=== PATIENT | male | born 1945 | race Caucasian/White ===

== ENCOUNTER 2018-12-07 09:14 | Day surgery (SDC) | payer MEDICARE, BC ==
[~2018-12-07] VITALS: Ht 180.3 cm; Wt 97.7 kg
[2018-12-07 09:29] LABS: BASOPHILS 0.6 % (0-2); EOSINOPHILS 3.9 % (0-7); HEMATOCRIT 43.5 % (42.0-54.0); HEMOGLOBIN 14.9 g/dL (13.5-17.5); IMMATURE GRANULOCYTES 0.2 % (0-5); MCH 30.7 pg (26.0-34.0); MCHC 34.3 g/dL (31.0-37.0); MCV 89.7 fL (80.0-100.0); MONOCYTES 8.1 % (2-11); NEUTROPHILS 60.2 % (40-80); PLATELET COUNT 200 10x3/uL (130-400); RBC 4.85 10x6/uL (4.20-6.10); RDW 13.2 % (11.5-14.5); WBC 5.3 10x3/uL (4.8-10.8)
[2018-12-07 09:38] LABS: APTT 27.9 SECONDS (22.8-39.4); INR 1.05 (0.85-1.17); PROTIME 13.2 SECONDS (11.6-15.0)
[2018-12-07] MEDS ORDERED: PAXIL20 MG PO (12:40)
[2018-12-07] MEDS ORDERED: ZOCOR20 MG PO (12:40)
[2018-12-07 12:48] VITALS: BP 149/87; Ht 180.3 cm; Wt 97.7 kg
--- NOTE | 2018-12-07 15:46 | NUR ---
[address] FIELDS. PROCEDURE FINDINGS DISCUSSED WITH PATIENT & . Daniel ESTRELLA R.N.
--- NOTE | 2018-12-07 15:54 | NUR ---
1522 IV DC'D. CATHETER INTACT. NO BLEEDING AT SITE. BANDAID APPLIED. 1525 DISCHARGE INSTRUCTIONS GIVEN TO PT. AT BEDSIDE. QUESTIONS ANSWERED.
--- NOTE | 2018-12-10 12:25 | OP ---
PATIENT NAME: JOHNY COLORADO MEDICAL RECORD: [id number] :45 LOCATION:D.OPS ADMISSION DATE: SURGEON: CORWIN FIELDS MD DATE OF OPERATION: 12/07/2018 PREOPERATIVE DIAGNOSIS: History of colon polyps. POSTOPERATIVE DIAGNOSES: History of colon polyps with 7 new sessile and semi-pedunculated colon polyps, one with significant regrowth within a scar. PROCEDURES: 1. Total colonoscopy to cecum. 2. Hot biopsy forceps polypectomy times 7. SURGEON: Corwin Fields MD TOP PRECIPITATOR OPERATOR HELPER: None. BLOOD LOSS: Minimal. ANESTHESIA: IV sedation. His prep was inadequate. Due to the inadequate prep, I will plan on performing another colonoscopy in a year. ENDOSCOPIC COURSE: The patient was conveyed to endoscopy suite electively on 12/07/2018. IV sedation was induced by the anesthesia staff. The patient was placed in the Dunlap position. A digital rectal examination was performed. A colonoscope was inserted through the anus. It was advanced to the ascending colon with difficulty. I slowly withdrew the endoscope. I irrigated and aspirated extensively. Pullback was greater than 18-minute pullback. I utilized not only normal imaging, but also narrow band imaging. Seven hot biopsy forceps polypectomies were performed. The polyps ranged in size from 7 mm-1.5 cm. A retroflexed view was obtained in the rectum. I then unretroflexed the scope and removed it under direct vision. I am going to dismiss the patient home on Flagyl. I plan to see him in my office in 2-3 weeks. I will plan for his next colonoscopy to take place in 1 year. TRANSINT:[id number] Voice Confirmation ID: [id number] DOCUMENT ID: [id number] CORWIN FIELDS MD at 1225 CC: REUBEN CARTWRIGHT [id number] DICTATION DATE: 12/07/18 1444 CAFE ASSISTANT: 12/07/18 1613 [facility] 12/07/[address] [address]
--- NOTE | 2018-12-10 12:25 | HP ---
PATIENT: JOHNY COLORADO MEDICAL RECORD: [id number] ACCOUNT: [id number] LOCATION:[facility] : 45 ADMISSION DATE: 12/07/18 PCP: REUBEN CARTWRIGHT MD HISTORY AND PHYSICAL EXAMINATION CHIEF COMPLAINT: Colon polyps. HISTORY OF PRESENT ILLNESS: The patient has had a history of colon polyps. Also, a family history of colon cancer. His mother had colon cancer. He has had no abdominal pain. No melena. No hematochezia. HOME MEDICINES: Paxil and Zocor. ALLERGIES: No known drug allergies. SOCIAL HISTORY: Nonsmoker. PAST MEDICAL AND SURGICAL HISTORY: Hypertension. REVIEW OF SYSTEMS: Negative for angina or myocardial infarction. No CABG, no stents. No gastroesophageal reflux disease. PHYSICAL EXAMINATION: GENERAL: He does not appear acutely ill. He does not appear chronically ill. VITAL SIGNS: Reviewed. EARS: External ears appear normal. EYES: Extraocular movements are intact. NECK: Trachea is midline. CHEST: No intercostal retractions. IMPRESSION: 1. Personal history of colon polyps. 2. Family history of colon cancer. PLAN: Surveillance colonoscopy. TRANSINT:[id number] Voice Confirmation ID: [id number] DOCUMENT ID: [id number] KYLER FIELDS MD at 1225 CC: [id number] DICTATION DATE: 12/07/18 1351 LACING STRING CUTTER: 12/07/18 1401 [facility] 12/07/18 [id number] [place] [address]
== END 2018-12-07 15:40 | disposition home or self-care (01) ==
LOC: D.OPS 09:14
PROVIDERS: ATTEND Surgery
DX: D12.3 Benign neoplasm of transverse colon (principal); D12.4 Benign neoplasm of descending colon; K63.5 Polyp of colon; Z01.812 Encounter for preprocedural laboratory examination